=== PATIENT | female | born 1970 | race Caucasian/White ===

== ENCOUNTER 2018-03-30 02:25 | Emergency (ER) | payer OTHER ==
[~2018-03-30] VITALS: Ht 170.2 cm; Wt 81.6 kg
[2018-03-30] MEDS ORDERED: TYLENOL325 M1 PO (02:36)
[2018-03-30] MEDS ORDERED: HYDROXYZINE HCL25 M1 PO (02:36)
[2018-03-30 02:55] LABS: ABSOLUTE EOSINOPHILS 0.1 thou/uL (0.0-0.7); ABSOLUTE LYMPHOCYTES 1.6 thou/uL (0.8-5.3); ABSOLUTE MONOCYTES 0.4 thou/uL (0.0-1.2); ABSOLUTE NEUTROPHILS 4.7 thou/uL (1.6-8.1); BASOPHILS 0.7 %; EOSINOPHILS 1.6 %; HEMATOCRIT 41.1 % (37.0-47.0); HEMOGLOBIN 13.8 gm/dL (12.0-15.0); LYMPHOCYTES 23.6 %; MCH 31.7 pg (26.0-34.0); MCHC 33.7 g/dL (28.0-37.0); MCV 94.1 fL (80.0-100.0); MONOCYTES 6.5 %; MPV 7.9 fl. (7.2-11.1); NUCLEATED RBCS 0 /100WBC; PLATELET COUNT* 210 thou/uL (150-400); POLYS 67.6 %; RBC 4.37 mil/uL (4.20-5.00); RDW-CV 14.1 % (10.5-14.5); WBC 6.9 thou/uL (4.0-11.0)
[2018-03-30 03:05] LABS: ANION GAP 10 mmol/L (7-16); BUN 16 mg/dL (7-18); CALCIUM 8.4 mg/dL (8.5-10.1); CHLORIDE 104 mmol/L (98-107); CO2 28 mmol/L (21-32); CREATININE 1.1 mg/dL (0.6-1.3); GLUCOSE 134 mg/dL (70-99); POTASSIUM 3.7 mmol/L (3.5-5.1); SODIUM 142 mmol/L (136-145)
[2018-03-30 03:07] LABS: PROTIME 10.2 Seconds (9.20-11.50)
[2018-03-30 03:11] LABS: ALBUMIN 3.9 g/dL (3.4-5.0); ALKALINE PHOSPHATASE 107 U/L (46-116); LIPASE 208 U/L (73-393); SGOT 45 U/L (15-37); SGPT 40 U/L (30-65); TOTAL BILIRUBIN 0.5 mg/dL (<0.1-1.0); TOTAL PROTEIN 6.9 g/dL (6.4-8.2); TROPONIN-I LEVEL <0.06 ng/mL (<0.06)
[2018-03-30 03:56] LABS: URINE BILIRUBIN NEGATIVE (Negative); URINE BLOOD 1+ (Negative); URINE CLARITY CLEAR; URINE COLOR YELLOW; URINE GLUCOSE-RANDOM NEGATIVE (Negative); URINE KETONES NEGATIVE (Negative); URINE LEUKOCYTES-REFLEX NEGATIVE (Negative); URINE NITRITE-REFLEX NEGATIVE (Negative); URINE PROTEIN NEGATIVE (Negative); URINE UROBILINOGEN 0.2 E.U./dl (0.2-1.0)
[2018-03-30] MEDS ORDERED: NORCO 5-325 TA1 EACH PO (04:15)
[2018-03-30] MEDS ORDERED: ZOFRAN ODT4 MG SUBLING (04:15)
[2018-03-30 04:43] VITALS: BP 152/86
[2018-03-30 04:47] LABS: CASTS None Seen /LPF (None Seen); CRYSTALS None Seen /LPF (None Seen); MUCUS 0-3 Light strn/LPF (None Seen); SQUAMOUS 0-3 Few /LPF (0-3); TRANSITIONAL EPITHEL CELL 0-3 Few /LPF (None Seen); URINE RBC 3-10 Few /HPF (0-2); URINE WBC-REFLEX 0-5 Rare /HPF (0-5)
--- NOTE | 2018-03-30 17:27 | EKG ---
[place] [address] ELECTROCARDIOGRAM REPORT Name: MOSES BRUNER Room: [facility]#: [id number] Admission: 03/30/18 Attend Phys: Discharge: 03/30/18 Date of : 70 Report #: [id number] THIS REPORT FOR: //name// [facility] ED Test Date: 2018-03-30 Test Time: 02:32:43 Pat Name: MOSES BRUNER Department: Room: Gender: F [employer] Cutter Operator: Omar RHODES : 1970 Requested By: Joe Dukes Order Number: [id number] MD: Andreas Wilks Measurements Intervals [place] Rate: 52 P: 18 ID: [id number] QRS: 22 QRSD: 83 T: 253 QT: 492 QTc: 458 Interpretive Statements Sinus rhythm Probable LVH with secondary repol abnrm Baseline wander in lead(s) V5 Compared to ECG 11/22/2008 07:51:18 Sinus bradycardia no longer present T-wave abnormality no longer present Possible ischemia no longer present Electronically Signed On 03-30-2018 17:27:37 MEDICAL CENTER DIRECTOR by Andreas Wilks [email or web address] <ELECTRONICALLY SIGNED> By: Andreas Wilks MD, FACC 03/30/18 1727 0232 0232 Andreas Wilks MD, FACC /EPI
== END 2018-03-30 04:43 | disposition home or self-care (01) ==
LOC: M.ERS 02:25
PROVIDERS: Family Medicine
DX: R10.13 Epigastric pain (principal); R11.2 Nausea with vomiting, unspecified; Z90.49 Acquired absence of other specified parts of digestive tract; Z90.710 Acquired absence of both cervix and uterus; F17.210 Nicotine dependence, cigarettes, uncomplicated